=== PATIENT | female | born 1935 | race Caucasian/White ===

== ENCOUNTER 2021-09-27 16:06 | Inpatient (IN) | payer BC, SELFPAY ==
[~2021-09-27] VITALS: Ht 144.8 cm; Wt 59.9 kg
[2021-09-27 16:06] VITALS: BP_SYST 91
[2021-09-27] MEDS ORDERED: KETOROLAC TROMETHAMINE 30 MG VIAL IVP ONE (17:00)
[2021-09-27] MEDS ORDERED: ACETAMINOPHEN 500 MG TABLET PO ONE (17:00)
[2021-09-27 17:34] LABS: BASOPHILS % (AUTO) 0.9 % (0.0-2.0); EOSINOPHILS # (AUTO) 0.1 K/uL (0.0-0.4); EOSINOPHILS % (AUTO) 2.9 % (0.0-4.0); HEMATOCRIT 33.8 % (36-48); HEMOGLOBIN 11.2 g/dL (12.0-16.0); LYMPHOCYTES # (AUTO) 0.7 K/uL (1.0-5.5); LYMPHOCYTES % (AUTO) 14.9 % (20.5-51.5); MEAN CORPUSCULAR HEMOGLOBIN 29 pg (27-31); MEAN CORPUSCULAR HGB CONC 33 % (32-36); MEAN CORPUSCULAR VOLUME 86 fL (79.0-98.0); MONOCYTES # (AUTO) 0.6 K/uL (0.0-1.0); MONOCYTES % (AUTO) 12.2 % (1.7-9.3); NEUTROPHILS # (AUTO) 3.2 K/uL (1.8-7.7); NEUTROPHILS % (AUTO) 69.1 % (40.0-70.0); PLATELET COUNT (AUTO) 83 K/uL (130-430); RED BLOOD CELL COUNT(AUTO) 3.93 MIL/uL (4.2-6.2); RED CELL DISTRIBUTION WIDTH 14.9 % (9.0-15.0); WHITE BLOOD COUNT (AUTO) 4.6 K/uL (4.8-10.8)
[2021-09-27 18:04] LABS: ANION GAP 12 (5-15); CALCIUM 7.8 mg/dL (8.4-11.0); CHLORIDE 103 mmol/L (98-107); CREATININE 1.54 mg/dL (0.55-1.30); GLUCOSE 122 mg/dL (70-99); POTASSIUM 3.9 mmol/L (3.5-5.1); SODIUM SERUM 136 mmol/L (136-145); UREA NITROGEN, BLOOD 23 mg/dL (8-21)
[2021-09-27 18:10] LABS: ALANINE AMINOTRANSFERASE 21 U/L (12-78); ALBUMIN 2.8 g/dL (3.4-4.8); ASPARTATE AMINOTRANSFERASE 25 U/L (10-37); TOTAL BILIRUBIN 0.1 mg/dL (0.0-1.0)
[2021-09-27] MEDS ORDERED: NACL 0.9% 1,000 ML IV ONE (18:15)
[2021-09-27 22:22] LABS: BILIRUBIN,URINE NEGATIVE (NEGATIVE); BLOOD, URINE NEGATIVE (NEGATIVE); CLARITY/URINE CLEAR (CLEAR); COLOR,URINE YELLOW (YELLOW); GLUCOSE,URINE NEGATIVE (NEGATIVE); KETONES,URINE NEGATIVE (NEGATIVE); LEUKOCYTE ESTERASE ,URINE NEGATIVE (NEGATIVE); NITRITE, URINE NEGATIVE (NEGATIVE); PROTEIN URINE NEGATIVE (NEGATIVE); UROBILINOGEN,URINE 0.2 (0.2-1.0)
[2021-09-28] MEDS ORDERED: cefTRIAXone 1 GM IVPB PREMIX 50 ML IV ONE (01:15)
[2021-09-28] MEDS ORDERED: DEXAMETHASONE SOD PHOSPHATE 4 MG/ML VIAL IVP ONE (01:15)
[2021-09-28] MEDS ORDERED: AZITHROMYCIN 500 MG in NS 250 ML IV ONE (01:15)
[2021-09-28 02:33] LABS: FIBRINOGEN 155 mg/dL (200-400)
[2021-09-28 02:36] LABS: C-REACTIVE PROTEIN QUANT 1.1 mg/dL (0-0.5)
[2021-09-28] MEDS ORDERED: AZITHROMYCIN 500 MG/VIAL (ZITHROMAX) IV ONE (05:43)
[2021-09-28] MEDS ORDERED: ACETAMINOPHEN 325 MG TABLET ONE (05:43)
[2021-09-28] MEDS ORDERED: cefTRIAXone 1 GM VIAL ONE (05:43)
[2021-09-28] MEDS ORDERED: ACETAMINOPHEN 325 MG TABLET PO ONE (05:45)
[2021-09-28] MEDS ORDERED: DEXAMETHASONE SOD PHOSPHATE 4 MG/ML VIAL ONE (05:47)
[2021-09-28] MEDS ORDERED: IPRATROPIUM BROM 0.5 MG/2.5 ML VIAL.NEB (ATROVENT) INH SCH (07:00)
[2021-09-28] MEDS ORDERED: D5/0.45 NS 1,000 ML IV SCH (07:00)
[2021-09-28] MEDS ORDERED: ALBUTEROL SULFATE 0.083% 2.5 MG/3 ML VIAL.NEB INH SCH (07:00)
[2021-09-28 08:00] VITALS: BP_SYST 106
[2021-09-28 08:14] VITALS: BP_SYST 155
[2021-09-28] MEDS: ACETAMINOPHEN 325 MG TABLET PO PRN ×2 (09:16→21:52)
[2021-09-28] MEDS: ONDANSETRON HCL 4 MG/2 ML VIAL IVP PRN (09:17)
[2021-09-28] MEDS ORDERED: DEXTROSE 50% JECT 50 ML DISP.SYRIN IVP PRN (10:00)
[2021-09-28] MEDS: NACL 0.9% 1,000 ML IV SCH (10:15)
[2021-09-28 12:37] VITALS: BP_SYST 143
[2021-09-28] MEDS: ALBUTEROL MDI INHALATION 8 GM INH INH SCH (13:00)
[2021-09-28 15:53] VITALS: BP_SYST 118
[2021-09-28 17:21] VITALS: BP_SYST 162
[2021-09-28] MEDS: INSULIN REGULAR, HUMAN 100 UNITS/ML, 10 ML VIAL (humuLIN R) SUBCUT PRN (18:33)
[2021-09-28 18:57] LABS: BASOPHILS % (AUTO) 0.6 % (0.0-2.0); HEMATOCRIT 35.6 % (36-48); HEMOGLOBIN 11.8 g/dL (12.0-16.0); LYMPHOCYTES # (AUTO) 0.6 K/uL (1.0-5.5); LYMPHOCYTES % (AUTO) 12.3 % (20.5-51.5); MEAN CORPUSCULAR HEMOGLOBIN 29 pg (27-31); MEAN CORPUSCULAR HGB CONC 33 % (32-36); MEAN CORPUSCULAR VOLUME 86 fL (79.0-98.0); MONOCYTES # (AUTO) 0.2 K/uL (0.0-1.0); NEUTROPHILS # (AUTO) 3.8 K/uL (1.8-7.7); NEUTROPHILS % (AUTO) 83.1 % (40.0-70.0); PLATELET COUNT (AUTO) 225 K/uL (130-430); RED BLOOD CELL COUNT(AUTO) 4.16 MIL/uL (4.2-6.2); RED CELL DISTRIBUTION WIDTH 15.2 % (9.0-15.0); WHITE BLOOD COUNT (AUTO) 4.6 K/uL (4.8-10.8)
[2021-09-28 19:35] LABS: C-REACTIVE PROTEIN QUANT 1.1 mg/dL (0-0.5)
[2021-09-28] MEDS ORDERED: ENOXAPARIN SODIUM 40 MG/0.4 ML SYRINGE SUBCUT ONE (20:00)
[2021-09-29] MEDS: INSULIN REGULAR, HUMAN 100 UNITS/ML, 10 ML VIAL (humuLIN R) SUBCUT PRN ×2 (00:11→06:25)
[2021-09-29] MEDS: NACL 0.9% 1,000 ML IV SCH ×3 (00:13→20:42)
[2021-09-29 01:00] VITALS: BP_SYST 144
[2021-09-29 01:51] VITALS: BP_SYST 153
[2021-09-29] MEDS: ALBUTEROL MDI INHALATION 8 GM INH INH SCH ×4 (05:58→21:40)
[2021-09-29 06:52] LABS: BASOPHILS % (AUTO) 0.3 % (0.0-2.0); HEMATOCRIT 32.7 % (36-48); HEMOGLOBIN 11.1 g/dL (12.0-16.0); LYMPHOCYTES # (AUTO) 0.9 K/uL (1.0-5.5); LYMPHOCYTES % (AUTO) 14.9 % (20.5-51.5); MEAN CORPUSCULAR HEMOGLOBIN 29 pg (27-31); MEAN CORPUSCULAR HGB CONC 34 % (32-36); MEAN CORPUSCULAR VOLUME 86 fL (79.0-98.0); MONOCYTES # (AUTO) 0.7 K/uL (0.0-1.0); MONOCYTES % (AUTO) 11.6 % (1.7-9.3); NEUTROPHILS # (AUTO) 4.3 K/uL (1.8-7.7); NEUTROPHILS % (AUTO) 73.2 % (40.0-70.0); PLATELET COUNT (AUTO) 216 K/uL (130-430); RED CELL DISTRIBUTION WIDTH 14.9 % (9.0-15.0)
[2021-09-29 07:42] LABS: ALANINE AMINOTRANSFERASE 25 U/L (12-78); ALBUMIN 2.9 g/dL (3.4-4.8); ANION GAP 10 (5-15); ASPARTATE AMINOTRANSFERASE 28 U/L (10-37); CALCIUM 7.7 mg/dL (8.4-11.0); CHLORIDE 105 mmol/L (98-107); GLUCOSE 173 mg/dL (70-99); PHOSPHORUS 4.1 mg/dL (2.7-4.5); POTASSIUM 4.9 mmol/L (3.5-5.1); SODIUM SERUM 138 mmol/L (136-145); UREA NITROGEN, BLOOD 30 mg/dL (8-21)
[2021-09-29 07:51] LABS: WHITE BLOOD COUNT (AUTO) 5.8 K/uL (4.8-10.8)
[2021-09-29 08:06] LABS: TOTAL BILIRUBIN < 0.1 mg/dL (0.0-1.0)
[2021-09-29 08:09] LABS: C-REACTIVE PROTEIN QUANT 0.3 mg/dL (0-0.5)
[2021-09-29] MEDS: DEXAMETHASONE SOD PHOSPHATE 10 MG/ML VIAL IVP SCH (08:56)
[2021-09-29] MEDS: AZITHROMYCIN 500 MG in NS 250 ML IV SCH (08:56)
[2021-09-29] MEDS: ACETAMINOPHEN 325 MG TABLET PO PRN ×2 (08:57→12:34)
[2021-09-29] MEDS: cefTRIAXone 1 GM IVPB PREMIX 50 ML IV SCH (08:57)
[2021-09-29] MEDS: ONDANSETRON HCL 4 MG/2 ML VIAL IVP PRN (08:57)
[2021-09-29 09:02] LABS: ERYTHROCYTE SEDIMENTATION RATE 2 MM/HR (0-20)
[2021-09-29 12:54] VITALS: BP_SYST 163
[2021-09-29] MEDS ORDERED: BENA1TAB77 PO (13:22)
[2021-09-29] MEDS ORDERED: OMEP20CA15 PO (13:22)
[2021-09-29] MEDS ORDERED: LIP10 PO (13:22)
[2021-09-29] MEDS ORDERED: ESCI20TA PO (13:22)
[2021-09-29] MEDS ORDERED: ASPI-859 PO (13:22)
[2021-09-29] MEDS ORDERED: MIRT-91 PO (13:29)
[2021-09-29] MEDS ORDERED: SITA50TA3 PO (13:29)
[2021-09-29 16:58] VITALS: BP_SYST 190
[2021-09-29 20:30] VITALS: BP_SYST 161
[2021-09-30] MEDS: INSULIN REGULAR, HUMAN 100 UNITS/ML, 10 ML VIAL (humuLIN R) SUBCUT PRN ×3 (00:37→17:55)
[2021-09-30] MEDS: ACETAMINOPHEN 325 MG TABLET PO PRN (00:39)
[2021-09-30] MEDS: ALBUTEROL MDI INHALATION 8 GM INH INH SCH ×3 (00:44→07:32)
[2021-09-30 00:45] VITALS: BP_SYST 166
[2021-09-30 07:02] LABS: BASOPHILS % (AUTO) 0.4 % (0.0-2.0); HEMATOCRIT 32.3 % (36-48); HEMOGLOBIN 10.8 g/dL (12.0-16.0); LYMPHOCYTES % (AUTO) 13.9 % (20.5-51.5); MEAN CORPUSCULAR HEMOGLOBIN 29 pg (27-31); MEAN CORPUSCULAR HGB CONC 33 % (32-36); MEAN CORPUSCULAR VOLUME 85 fL (79.0-98.0); MONOCYTES # (AUTO) 0.6 K/uL (0.0-1.0); MONOCYTES % (AUTO) 8.6 % (1.7-9.3); NEUTROPHILS # (AUTO) 5.6 K/uL (1.8-7.7); NEUTROPHILS % (AUTO) 77.1 % (40.0-70.0); PLATELET COUNT (AUTO) 239 K/uL (130-430); RED BLOOD CELL COUNT(AUTO) 3.79 MIL/uL (4.2-6.2); RED CELL DISTRIBUTION WIDTH 14.5 % (9.0-15.0); WHITE BLOOD COUNT (AUTO) 7.3 K/uL (4.8-10.8)
[2021-09-30 07:15] LABS: ALANINE AMINOTRANSFERASE 20 U/L (12-78); ALBUMIN 2.8 g/dL (3.4-4.8); ANION GAP 9 (5-15); ASPARTATE AMINOTRANSFERASE 11 U/L (10-37); CHLORIDE 105 mmol/L (98-107); CREATININE 1.37 mg/dL (0.55-1.30); GLUCOSE 155 mg/dL (70-99); POTASSIUM 4.4 mmol/L (3.5-5.1); SODIUM SERUM 138 mmol/L (136-145); UREA NITROGEN, BLOOD 28 mg/dL (8-21)
[2021-09-30 07:37] LABS: TOTAL BILIRUBIN < 0.1 mg/dL (0.0-1.0)
[2021-09-30] MEDS: DEXAMETHASONE SOD PHOSPHATE 10 MG/ML VIAL IVP SCH (08:19)
[2021-09-30] MEDS: ENOXAPARIN SODIUM 40 MG/0.4 ML SYRINGE SUBCUT SCH ×2 (08:20→08:43)
[2021-09-30] MEDS: AZITHROMYCIN 500 MG in NS 250 ML IV SCH (08:21)
[2021-09-30 08:30] VITALS: BP_SYST 155
[2021-09-30] MEDS ORDERED: LISINOPRIL 10 MG TABLET (PRINIVIL) PO SCH (09:00)
[2021-09-30] MEDS ORDERED: CITALOPRAM HYDROBROMIDE 20 MG TABLET PO SCH (09:00)
[2021-09-30] MEDS ORDERED: HYDROCHLOROTHIAZIDE 12.5 MG CAPSULE (HCTZ) PO SCH (09:00)
[2021-09-30] MEDS: cefTRIAXone 1 GM IVPB PREMIX 50 ML IV SCH (09:50)
[2021-09-30 11:23] VITALS: BP_SYST 158
[2021-09-30 12:03] VITALS: BP_SYST 161
[2021-09-30] MEDS ORDERED: DEC1 PO (13:27)
[2021-09-30] MEDS: NACL 0.9% 1,000 ML IV SCH (15:35)
[2021-09-30 15:59] VITALS: BP_SYST 158
[2021-09-30 16:15] VITALS: BP_SYST 158
[2021-09-30] MEDS ORDERED: LOPERAMIDE HCL 2 MG CAPSULE PO ONE (16:45)
== END 2021-09-30 19:05 | disposition home or self-care (01) | DRG 871 ==
LOC: SED 16:06 → STU 09-28 04:49 → SMU 09-29 10:04
PROVIDERS: ADMIT Internal Medicine Hospice and Palliative Medicine; ATTEND Internal Medicine Hospice and Palliative Medicine
DX: A41.9 Sepsis, unspecified organism (principal); U07.1 COVID-19; J12.82 Pneumonia due to coronavirus disease 2019; J96.01 Acute respiratory failure with hypoxia; N17.0 Acute kidney failure with tubular necrosis; I12.9 Hypertensive chronic kidney disease with stage 1 through stage 4 chronic kidney disease, or unspecified chronic kidney disease; E11.22 Type 2 diabetes mellitus with diabetic chronic kidney disease; N18.9 Chronic kidney disease, unspecified; E78.00 Pure hypercholesterolemia, unspecified; E78.5 Hyperlipidemia, unspecified; Z88.5 Allergy status to narcotic agent; Z90.49 Acquired absence of other specified parts of digestive tract
CPT/HCPCS: 36415; 36600; 70450-TC; 71045; 76376; 80053; 81003; 82728; 82803-TC; 82962; 83605; 83615; 83735; 83880; 84100; 84484; 85025; 85379; 85384; 85651-TC; 86140; 87040; 87086; 93005; 93306; 94640; 94664; 94760; 96365; 96367; 96375; 99291; G0378; J0456; J0696; J1100; J1650; J1815; J1885; J2405; J7050